=== PATIENT | male | born 1945 | race Caucasian/White ===

== ENCOUNTER → 2024-10-15 | Outpatient (CLI) | payer MEDICARE ==
[~2024-10-15] MED LIST: ALLOPURINOL300 M1 PO; ASPIRIN E.C. 8181 MG PO; DICLOFENAC SOD100 M1 PO; IMIPRAMINE HYDR50 MG PO; NORCO 325 MG-51 TA1 PO; ROSUVASTATIN CA10 MG PO; XARELTO STARTER20 MG PO; XARELTO15 MG PO; XARELTO20 MG PO; ZESTRIL10 M1 PO
== END ==
LOC: RAD 09:21
DX: I82.431 Acute embolism and thrombosis of right popliteal vein (principal)

== ENCOUNTER → 2024-10-15 | Outpatient (CLI) | payer MEDICARE ==
[~2024-10-15] VITALS: Wt 103.9 kg
[2024-10-15 15:34] VITALS: BP 138/72
== END ==
LOC: AMSURD 15:01
DX: I82.409 Acute embolism and thrombosis of unspecified deep veins of unspecified lower extremity (principal)
CPT/HCPCS: J1650

== ENCOUNTER 2024-10-18 08:39 | Emergency (ER) | payer MEDICARE, OTHER ==
[~2024-10-18] VITALS: Ht 182.9 cm; Wt 95.3 kg
[2024-10-18] MEDS ORDERED: ATIVAN0.5 MG PO (09:04)
[2024-10-18] MEDS ORDERED: TRAMADOL 50 MG TAB PO (09:41)
[2024-10-18] MEDS ORDERED: LORAZEPAM0.5 M1 PO (09:41)
[2024-10-18] MEDS ORDERED: traMADol 50 MG TAB PO ONE (09:45)
[2024-10-18 10:00] VITALS: BP 132/77
== END 2024-10-18 10:02 | disposition home or self-care (01) ==
LOC: ED 08:39
DX: M25.461 Effusion, right knee (principal); I87.001 Postthrombotic syndrome without complications of right lower extremity; I82.401 Acute embolism and thrombosis of unspecified deep veins of right lower extremity; F41.9 Anxiety disorder, unspecified; Z79.01 Long term (current) use of anticoagulants

== ENCOUNTER → 2025-02-11 | Outpatient (CLI) | payer MEDICARE, OTHER ==
[~2025-02-11] MED LIST changes: +ATIVAN0.5 MG PO; +LORAZEPAM0.5 M1 PO; +TRAMADOL 50 MG TAB PO
== END ==
LOC: RAD 08:57
DX: I82.431 Acute embolism and thrombosis of right popliteal vein (principal)